=== PATIENT | male | born 1975 | race African-American/Black ===

== ENCOUNTER 2018-07-11 07:52 | Emergency (ER) | payer OTHER, SELFPAY ==
[2018-07-11 08:00] VITALS: BP 127/95; PULSE 65; RESP 18; TEMP 36.8; O2SAT 97; BMI 32.5
--- NOTE | 2018-07-11 08:49 | DI.CT.S_ITS ---
PROCEDURE: CT CERVICAL SPINE WO CON INDICATIONS: new right sided numbness, fusion for left side TECHNIQUE: Noncontrast 3 mm thick sections acquired from the skull base to the T4 level. Sagittal and coronal reformats were then constructed. For radiation dose reduction, the following was used: automated exposure control, adjustment of mA and/or kV according to patient size. COMPARISON: [facility], , C-SPINE WITHOUT CONTRAST, 04/17/2017, 15:41. FINDINGS: Image quality: Excellent. Bones: No fractures or dislocations. There is straightening of the cervical lordosis redemonstrated. Postsurgical changes also again noted status post anterior fixation at C5-C7 with intact appearance of the surgical hardware. Intervertebral spacers are also redemonstrated at C5-C6 and C6-C7. Mild loss of disc height is demonstrated at C4-C5 and C7-T1. A small posterior disc osteophyte complex is again noted at C4-C5. Minimal uncovertebral joint arthropathy is also demonstrated in the lower cervical spine with minimal multilevel facet arthropathy. The overall findings appear similar to the prior study. No definite high-grade spinal canal narrowing. There is mild spinal canal narrowing at C4-C5. Evaluation for neuroforaminal narrowing is limited on CT. There is mild right bony neural frontal narrowing at C5-C6 and mild bony left neuroforaminal narrowing at C6-C7. Visualized superior ribs are intact. Soft tissues: Prevertebral soft tissues are normal in thickness. No paravertebral hematomas. No apical pneumothoraces. IMPRESSION: 1. No acute fracture or subluxation. 2. Postsurgical changes status post ACDF at C5-C7 redemonstrated. No change in alignment or evidence of hardware failure. 3. Mild multilevel degenerative disc disease with minimal uncovertebral and facet joint arthropathy redemonstrated elsewhere. 4. Mild spinal canal narrowing at C4-C5 redemonstrated. Limited evaluation on CT demonstrates no high-grade neuroforaminal narrowing. There is mild right bony neuroforaminal narrowing at C5-C6. Dictated by: Chicho Aguilar M.D. on 07/11/2018 at 9:00 Approved by: Chicho Aguilar M.D. on 07/11/2018 at 9:06
--- NOTE | 2018-07-11 09:04 | ED_ITS ---
HPI - Neuro Symptoms/Deficit General Chief Complaint: Neuro Symptoms/Deficit Stated Complaint: losing feeling in right side Time Seen by Provider: 07/11/18 08:23 Source: patient Mode of arrival: ambulatory Limitations: no limitations History of Present Illness HPI Narrative: The patient is a 42-year-old male who presents with right shoulder numbness. He has a history of cervical fusion on the left side for radiculopathy is he was told that the right side would eventually need it. His surgery was done in 2016 in [place]. Last evening his right shoulder went numb. He really has no pain he just says it feels completely different than the left side which is new for him. He has not had any fever no weakness. He really is not in any pain but was wondering about the numbness. On Anticoagulants: No Related Data Previous Rx's Medication Instructions Recorded diazepam [Valium] 5 mg PO Q12HR PRN #10 tab 07/11/18 Review of Systems Review of Systems GENERAL: Denies chills, fatigue, malaise, fever, sweats, travel HEENT: Denies sinus pain, ear pain, sore throat, difficulty swallowing, neck pain RESPIRATORY: Denies dyspnea, cough, wheezing, hemoptysis, sputum. CARDIOVASCULAR: Denies chest pain, palpitations, orthopnea, edema GASTROINTESTINAL: Denies nausea, vomiting, abdominal pain, diarrhea, constipation, melena. : Denies dysuria, frequency, incontinence, hematuria, urinary retention, flank pain. MUSCULOSKELETAL: Denies weakness, joint pain, or bony pain SKIN: No rash, no erythema, no pruritus NEUROLOGIC: See HPI PSYCHIATRIC: No concerning psychosocial issues. 12 point review of systems is negative except for those stated above and HPI [facility] Surgical History S/P cervical spinal fusion (Acute) Social History Smoking Status: Never smoker Social History Smoking Status: Never smoker Exam Initial Vital Signs Initial Vital Signs: Vital Signs Temperature 98.2 F 07/11/18 08:00 Pulse Rate 65 07/11/18 08:00 Respiratory Rate 18 07/11/18 08:00 Blood Pressure 127/95 H 07/11/18 08:00 Pulse Oximetry 97 01/31/19 08:00 GENERAL: Well-appearing, well-nourished and in no acute distress. NECK: No vertebral tenderness no step-offs. Paraspinal muscles are extremely tight. Sensation over right shoulder is decreased to light touch compared to left. CARDIOVASCULAR: peripheral pulses in tact, cap refill <2 sec RESPIRATORY: No respiratory distress, speaks in full sentences without difficulty EXTREMITIES: Normal range of motion, no clubbing or edema. Neurovascularly intact Liquid Flavor Compounder strength equal bilaterally radial median and ulnar nerve intact bilaterally NEUROLOGICAL: Cranial nerves II through XII grossly intact. Normal gait and speech. SKIN: Warm, dry, no petechiae, no rashes or lesions. Course Orders Ordered: ED Orders 07/11/18 08:49 CT cervical spine wo con Stat Vital Signs - 8 hr 07/11/18 08:00 07/11/18 10:26 Temperature 98.2 F Pulse Rate 65 57 L Respiratory Rate 18 18 Blood Pressure 127/95 H 131/79 Pulse Oximetry 97 97 MDM - Neuro Symptoms/Deficit Imaging Data CT Cervical: Radiologist's impression: PROCEDURE: CT CERVICAL SPINE WO CON INDICATIONS: new right sided numbness, fusion for left side TECHNIQUE: Noncontrast 3 mm thick sections acquired from the skull base to the T4 level. Sagittal and coronal reformats were then constructed. For radiation dose reduction, the following was used: automated exposure control, adjustment of mA and/or kV according to patient size. COMPARISON: [facility], , C-SPINE WITHOUT CONTRAST, 04/17/2017, 15:41. FINDINGS: Image quality: Excellent. Bones: No fractures or dislocations. There is straightening of the cervical lordosis redemonstrated. Postsurgical changes also again noted status post anterior fixation at C5-C7 with intact appearance of the surgical hardware. Intervertebral spacers are also redemonstrated at C5-C6 and C6-C7. Mild loss of disc height is demonstrated at C4-C5 and C7-T1. A small posterior disc osteophyte complex is again noted at C4-C5. Minimal uncovertebral joint arthropathy is also demonstrated in the lower cervical spine with minimal multilevel facet arthropathy. The overall findings appear similar to the prior study. No definite high-grade spinal canal narrowing. There is mild spinal canal narrowing at C4-C5. Evaluation for neuroforaminal narrowing is limited on CT. There is mild right bony neural frontal narrowing at C5-C6 and mild bony left neuroforaminal narrowing at C6-C7. Visualized superior ribs are intact. Soft tissues: Prevertebral soft tissues are normal in thickness. No paravertebral hematomas. No apical pneumothoraces. IMPRESSION: 1. No acute fracture or subluxation. 2. Postsurgical changes status post ACDF at C5-C7 redemonstrated. No change in alignment or evidence of hardware failure. 3. Mild multilevel degenerative disc disease with minimal uncovertebral and facet joint arthropathy redemonstrated elsewhere. 4. Mild spinal canal narrowing at C4-C5 redemonstrated. Limited evaluation on CT demonstrates no high-grade neuroforaminal narrowing. There is mild right bony neuroforaminal narrowing at C5-C6. Dictated by: Chicho Aguilar M.D. on 07/11/2018 at 9:[address] [facility] Narrative Medical decision making narrative: Recommended that patient get outpatient MRI. He may require physical therapy. Also recommended massage to help loosen paraspinal muscles. He is given Valium to help with muscle spasm as well. He is not asking or requiring anything for pain at this time. Discharge Plan Departure Patient Disposition: Home Clinical Impression: Cervical radiculopathy Discharge Date/Time: 07/11/18 10:28 Interventions: ED Discharge Assessment Last Done: 07/11/18 10:26 Instructions: DI for Cervical Radiculopathy Activity Restrictions/Additional Instructions: *You have been diagnosed with cervical radiculopathy *What to do: Recommend of muscle relaxation this may help with the numbness. You do have some mild bony narrowing but it is not high grade. You may require outpatient MRI *Continue to take medications as directed Valium 5 mg every 12 hr if needed for severe muscle spasm *Follow up with your primary care provider in 2-3 days *Return to ER if you should have weakness, increased pain, or any new, worsening or concerning symptoms Prescriptions: New diazepam [Valium] 5 mg tablet 5 mg PO Q12HR PRN (Reason: muscle spasm) Qty: 10 RF: 0 Referrals: [facility] [Provider Group]
[2018-07-11 10:26] VITALS: BP 131/79; PULSE 57; RESP 18; O2SAT 97
== END 2018-07-11 10:28 | disposition home or self-care (01) ==
PROVIDERS: Emergency Provider Emergency Medicine
DX: M54.12 Radiculopathy, cervical region (principal)
CPT/HCPCS: 72125; 99282; 99284; 99291